=== PATIENT | male | born 1975 | race African-American/Black ===

== ENCOUNTER 2018-05-12 20:24 | Emergency (ER) | payer OTHER ==
[~2018-05-12] VITALS: Ht 172.7 cm; Wt 86.2 kg
[2018-05-12] MEDS ORDERED: ERYTHROMYCIN E3.5 G3 OPHTHALMIC (20:58)
[2018-05-12 21:25] VITALS: BP 122/75
== END 2018-05-13 05:17 | disposition home or self-care (01) ==
LOC: ER 20:24
DX: H00.13 Chalazion right eye, unspecified eyelid (principal)